=== PATIENT | female | born 1985 | race African-American/Black ===

== ENCOUNTER 2018-10-28 18:26 | Emergency (ER) | payer OTHER ==
[~2018-10-28] VITALS: Ht 167.6 cm; Wt 140.6 kg
[~2018-10-28 18:26] MED LIST: COLACE100 MG PO; CYCLOBENZAPRINE5 MG PO; HYDROCODONE-APA1 TA1 PO; IBUPROFEN 600600 M1 PO; IRON325 PO; MULTIVITAMINS1 EAC7 PO; NORCO 5-325 TA1 EACH PO
[2018-10-28] MEDS ORDERED: VALIUM5 MG PO (20:07)
[2018-10-28] MEDS ORDERED: MOBIC15 MG PO (20:07)
[2018-10-28 20:22] VITALS: BP 137/86
== END 2018-10-28 20:23 | disposition home or self-care (01) ==
LOC: ER 18:26
DX: M54.5 Low back pain (principal); V49.49XA Driver injured in collision with other motor vehicles in traffic accident, initial encounter; Y93.89 Activity, other specified; Y92.89 Other specified places as the place of occurrence of the external cause; Y99.8 Other external cause status; Z88.5 Allergy status to narcotic agent

== ENCOUNTER 2019-12-27 14:04 | Emergency (ER) | payer OTHER ==
[~2019-12-27] VITALS: Ht 167.6 cm; Wt 122.5 kg
[~2019-12-27 14:04] MED LIST changes: +MOBIC15 MG PO; +VALIUM5 MG PO
[2019-12-27] MEDS ORDERED: NORCO 5-325 TA1 EAC1 PO (16:04)
[2019-12-27] MEDS ORDERED: CYCLOBENZAPRINE5 MG PO (16:04)
[2019-12-27 16:45] VITALS: BP 99/45
== END 2019-12-27 16:45 | disposition home or self-care (01) ==
LOC: ER 14:04
DX: S00.83XA Contusion of other part of head, initial encounter (principal); M54.2 Cervicalgia; M25.561 Pain in right knee; M54.9 Dorsalgia, unspecified; Z98.890 Other specified postprocedural states; Z86.2 Personal history of diseases of the blood and blood-forming organs and certain disorders involving the immune mechanism; Z88.6 Allergy status to analgesic agent; V89.2XXA Person injured in unspecified motor-vehicle accident, traffic, initial encounter; Y93.89 Activity, other specified; Y92.89 Other specified places as the place of occurrence of the external cause; Y99.8 Other external cause status